=== PATIENT | female | born 1985 | race Two or more races ===

== ENCOUNTER 2018-06-28 09:02 | Outpatient (CLI) | payer OTHER ==
[~2018-06-28 09:02] MED LIST: PERCOCET 5/3251 TAB PO; ULTRACET PO
== END 2018-06-28 09:10 | disposition home or self-care (01) ==
LOC: RAD 501 09:02
DX: M54.2 Cervicalgia (principal); M54.5 Low back pain; M54.11 Radiculopathy, occipito-atlanto-axial region

== ENCOUNTER 2018-11-06 05:22 | Day surgery (SDC) | payer OTHER | END 2018-11-06 16:15 | disposition home or self-care (01) | LOC: CIR.AMB 05:22 | DX: N84.0 Polyp of corpus uteri (principal); N72 Inflammatory disease of cervix uteri ==

== ENCOUNTER 2023-04-19 14:49 | Emergency (ER) | payer OTHER ==
[~2023-04-19] VITALS: Ht 157.5 cm; Wt 59.0 kg
[2023-04-19 16:47] LABS: HEMATOCRIT 42.2 % (36.0-45.00); HEMOGLOBIN 13.9 g/dL (12.0-15.00); MEAN CELL VOLUME 82.3 fL (80.00-100.00); MEAN CORPUSCULAR HEMOGLOBIN 27.1 pg (27.00-32.0); MEAN CORPUSCULAR HGB CONC 32.9 g/dl (32.0-36.0); PLATELET COUNT 251 K/uL (150-450); RED BLOOD COUNT 5.12 M/uL (4.00-6.00)
[2023-04-19 17:16] LABS: CALCIUM 9.6 mg/dL (8.5-10.1); CREATININE SERUM 0.9 mg/dL (0.55-1.02); GFR 69.7; POTASSIUM 5.4 mEq/L (3.5-5.1)
== END 2023-04-19 19:00 | disposition home or self-care (01) ==
LOC: ER 14:50
PROVIDERS: Emergency Medicine
DX: T78.40XA Allergy, unspecified, initial encounter (principal)

== ENCOUNTER 2024-04-09 11:14 | Emergency (ER) | payer OTHER ==
[~2024-04-09] VITALS: Ht 157.5 cm; Wt 60.8 kg
[2024-04-09] MEDS ORDERED: MAG HYDROX/ALUMINUM HYD/SIMETH 30 ML BLIST.PACK PO ONE ×2 (14:00→15:13)
[2024-04-09] MEDS ORDERED: HYOSCYAMINE SULFATE 0.125 MG TAB.SUBL SL ONE (14:00)
[2024-04-09] MEDS ORDERED: FAMOTIDINE/PF 20 MG/2 ML VIAL IV PUSH ONE (14:00)
[2024-04-09] MEDS ORDERED: HYOSCYAMINE SULFATE 0.125 MG TAB.SUBL ONE (15:13)
[2024-04-09] MEDS ORDERED: FAMOTIDINE/PF 20 MG/2 ML VIAL ONE (15:13)
[2024-04-09 15:53] LABS: HEMATOCRIT 45.6 % (36.0-45.00); HEMOGLOBIN 14.7 g/dL (12.0-15.00); MEAN CELL VOLUME 84.1 fL (80.00-100.00); MEAN CORPUSCULAR HEMOGLOBIN 27.2 pg (27.00-32.0); MEAN CORPUSCULAR HGB CONC 32.3 g/dl (32.0-36.0); PLATELET COUNT 199 K/uL (150-450); RED BLOOD COUNT 5.42 M/uL (4.00-6.00)
[2024-04-09 16:11] LABS: CALCIUM 9.5 mg/dL (8.5-10.1); CREATININE SERUM 0.64 mg/dL (0.55-1.02); GFR 102.78; POTASSIUM 4.22 mEq/L (3.5-5.1)
== END 2024-04-09 17:16 | disposition home or self-care (01) ==
LOC: ER 11:16
PROVIDERS: Emergency Medicine
DX: R53.81 Other malaise (principal); K29.70 Gastritis, unspecified, without bleeding